=== PATIENT | female | born 1995 | race African-American/Black ===

== ENCOUNTER 2019-04-14 07:55 | Emergency (ER) | payer BC ==
[~2019-04-14] VITALS: Ht 160 cm; Wt 79.0 kg
[2019-04-14 09:06] LABS: BASOPHILS % 0.8 % (0.0-2.0); EOSINOPHILS % 0.8 % (0.0-5.0); HEMOGLOBIN. 12.4 g/dL (12.0-16.0); LYMPHOCYTES % 48.2 % (20.0-50.0); MEAN CORPUSCULAR VOLUME 86.4 fL (81.0-99.0); MEAN PLATELET VOLUME 7.4 fl (7.4-10.4); MONOCYTES % 9.6 % (2.0-8.0); NEUTROPHILS % 40.6 % (40.0-76.0); PLATELET 265 x1000/uL (130-400); RED BLOOD CELL COUNT 4.28 mill/uL (4.2-5.4); RED CELL DISTRIBUTION WIDTH 14.2 % (11.6-14.6)
[2019-04-14 09:14] LABS: CHLORIDE 105 mEq/L (98-107)
[2019-04-14 09:23] LABS: HCG SCREEN NEGATIVE
[2019-04-14] MEDS ORDERED: SODIUM CHLORIDE 0.9% 1,000 ML IV ONE (09:25)
[2019-04-14] MEDS ORDERED: ONDANSETRON HCL 4MG/2ML INJ IV STA (09:25)
[2019-04-14] MEDS ORDERED: MORPHINE SULFATE 4 MG/ML CPJ (NOT FOR IM USE) IV STA (09:25)
[2019-04-14 09:27] LABS: INR 1.1; PARTIAL THROMBOPLASTIN TIME 31.1 sec (23.4-31.0); PROTHROMBIN TIME 11.2 sec (9.6-11.0)
[2019-04-14 09:32] LABS: CLARITY URINE CLEAR (CLEAR); COLOR URINE YELLOW (YELLOW); KETONES URINE NEGATIVE (NEGATIVE); LEUKOCYTE ESTERASE URINE NEGATIVE (NEGATIVE); NITRITE URINE NEGATIVE (NEGATIVE); OCCULT BLOOD URINE 1+ (NEGATIVE); PH URINE 6.5 (4.5-8.0); PROTEIN URINE NEGATIVE (NEGATIVE); SPECIFIC GRAVITY URINE 1.017 (1.005-1.030); UROBILINOGEN URINE 0.2 E.U./dL (0.2-1.0)
[2019-04-14] MEDS ORDERED: IOHEXOL-350 100 ML BOTTLE ONE (09:34)
[2019-04-14] MEDS ORDERED: ASPIRIN 325MG EC TABLET PO ONE (09:45)
[2019-04-14 10:04] LABS: *AMPHETAMINES SCREEN URINE NEGATIVE (NEGATIVE); *BARBITURATES SCREEN URINE NEGATIVE (NEGATIVE); *BENZODIAZEPINES SCREEN URINE NEGATIVE (NEGATIVE); *COCAINE SCREEN URINE NEGATIVE (NEGATIVE); CANNABINOID URINE SCREEN NEGATIVE (NEGATIVE); METHADONE URINE SCREEN NEGATIVE (NEGATIVE); OPIATES URINE SCREEN NEGATIVE (NEGATIVE)
[2019-04-14 10:05] LABS: PHENCYCLIDINE URINE SCREEN NEGATIVE (NEGATIVE)
[2019-04-14 12:16] VITALS: BP 101/62
== END 2019-04-14 13:11 | disposition short-term general hospital (02) ==
LOC: ER 08:06
DX: R51 Headache (principal); R20.0 Anesthesia of skin
CPT/HCPCS: 36415; 70450; 70496; 70498; 71045; 80053; 80305; 80320; 81003; 81025; 82962; 83880; 84484; 84703; 85025; 85610; 85730; 93005; 96374; 96375; 99291; J2270; J2405; J7030; Q9967; G0480